=== PATIENT | female | born 1980 | race Caucasian/White ===

== ENCOUNTER 2016-06-16 20:42 | Emergency (ER) | payer BC, OTHER ==
[~2016-06-16] VITALS: Ht 154.9 cm; Wt 86.1 kg
[2016-06-16 20:50] VITALS: BP 115/76; PULSE 92; RESP 18; TEMP 98; O2SAT 97
[2016-06-16] MEDS ORDERED: CLAR10CA3 PO (21:03)
[2016-06-16] MEDS ORDERED: GLIP5TAB8 PO (21:03)
[2016-06-16] MEDS ORDERED: METF850T PO (21:03)
[2016-06-16] MEDS ORDERED: PRAV20TA2 PO (21:03)
[2016-06-16] MEDS ORDERED: METO25TA3 PO (21:03)
[2016-06-16] MEDS ORDERED: OMEP40CA2 PO (21:03)
[2016-06-16] MEDS ORDERED: BENA10TA PO (21:03)
[2016-06-16] MEDS ORDERED: MONT10TA2 PO (21:03)
[2016-06-16] MEDS ORDERED: CANA100T PO (21:03)
[2016-06-16] MEDS ORDERED: VENL37.595 PO (21:04)
[2016-06-16] MEDS ORDERED: VENL75TA2 PO (21:04)
--- NOTE | 2016-06-16 21:08 | PD ---
HPI . fall at [facility]/ now back pain and buttocks pain Chief Complaint: Fall Time Seen by Provider: 20:57 Travel History International Travel<30 days: No Contact w/Intl Traveler<30days: No Traveled to known affect area: No History of Present Illness HPI 36 old female with hypertension, hyperlipidemia, diabetes and anxiety here with complaints of a fall at [facility]. Apparently patient slipped and fell on some residual water that was on the floor. She hit her left knee and is now complaining of pain in her lower back that is radiating into her buttocks. She rates the pain 7/10 on a pain scale. She denies any injury to her head or loss of consciousness. The event was witnessed by her and some bystanders. She has no other complaints. PFSH Past Medical History High Cholesterol: Yes Diabetes: Yes Patient Takes Glucophage: Yes Hypertension: Yes Tetanus Vaccination: < 5 Years Influenza Vaccination: No ?: Not LMP: 3 weeks ago Past Surgical History Other Surgery: Yes (BL breast reduc.) Social History Alcohol Use: No Tobacco Use: No Substance Use: No Allergies-Medications (Allergen,Severity, Reaction): Coded Allergies: No Known Allergies (Unverified , 06/16/16) Reported Meds & Prescriptions Reported Meds & Active Scripts Active Robaxin (Methocarbamol) 500 Mg Tab 500 Mg PO TID Reported Venlafaxine ER 24 HR (Venlafaxine HCl) 75 Mg Tab 75 Mg PO DAILY Venlafaxine ER 24 HR (Venlafaxine HCl) 37.5 Mg Cap 37.5 Mg PO DAILY Singulair (Montelukast Sodium) 10 Mg Tab 10 Mg PO HS Claritin (Loratadine) 10 Mg Cap 10 Mg PO DAILY Omeprazole 40 Mg Cap 40 Mg PO DAILY Pravastatin 20 Mg Tab 20 Mg PO DAILY Benazepril (Benazepril HCl) 10 Mg Tab 10 Mg PO DAILY Metoprolol Tartrate 25 Mg Tab 25 Mg PO DAILY Invokana (Canagliflozin) 100 Mg Tab 100 Mg PO DAILY Take before 1st meal of day. Glipizide 5 Mg Tab 5 Mg PO TID Take 30 minutes before a meal Metformin (Metformin HCl) 850 Mg Tab 875 Mg PO TID With meals Review of Systems General / Constitutional: No: Fever Eyes: No: Visual changes HENT: No: Headaches Cardiovascular: No: Chest Pain or Discomfort Respiratory: No: Shortness of Breath Gastrointestinal: No: Abdominal Pain Genitourinary: No: Dysuria Musculoskeletal: Positive: Pain (lower back and left buttocks) Skin: No Rash Neurologic: No: Weakness Psychiatric: No: Depression Endocrine: No: Polydipsia Hematologic/Lymphatic: No: Easy Bruising Physical Exam Narrative GENERAL: AAO x 3, no acute distress, Well-nourished, well-developed patient. SKIN: Warm and dry. No visible rashes or bruising. HEAD: Normocephalic and atraumatic. EYES: No scleral icterus. No injection or drainage. ENT: No nasal drainage noted. Mucous membranes pink. Airway patent. NECK: Supple, trachea midline. No JVD. CARDIOVASCULAR: Regular rate and rhythm without murmurs, gallops, or rubs. RESPIRATORY: Breath sounds equal bilaterally. No accessory muscle use. No rhonchi or rales. GASTROINTESTINAL: Abdomen soft, non-tender, nondistended. EXTREMITIES: No cyanosis or edema. FUll ROM of Knee. No deformity. Joint is stable. no ecchymosis BACK: Nontender without obvious deformity. No CVA tenderness. Paraspinal muscle tenderness to left side of lumbar spine. There is pain in left buttocks over sciatic nerve. When pressure applied to buttocks pain is intensified radiates down. PSYCH: AAO x 3, normal affect. Data Data Last Documented VS Vital Signs Date Time Temp Pulse Resp B/P Pulse Ox O2 Delivery O2 Flow Rate FiO2 06/16/16 20:50 98.0 92 18 115/76 97 Orders Orphenadrine Inj (Norflex Inj) (06/16/16 21:15) Ketorolac Inj (Toradol Inj) (06/16/16 21:15) MDM Medical Decision Making Medical Screen Exam Complete: Yes Emergency Medical Condition: Yes Medical Record Reviewed: Yes Differential Diagnosis Muscle strain, lumbosacral strain, sciatica, less likely fracture of the spine or knee Narrative Course 36 old female with hypertension, hyperlipidemia, diabetes and anxiety here with complaints of a fall at [facility]. Apparently patient slipped and fell on some residual water that was on the floor. She hit her left knee and is now complaining of pain in her lower back that is radiating into her buttocks. She rates the pain 7/10 on a pain scale. She denies any injury to her head or loss of consciousness. The event was witnessed by her and some bystanders. She has no other complaints. Patient seen and examined. She does have some paraspinal muscle tenderness and tenderness over her left gluteus, Consistent with muscle strain and sciatica. I do not recommend any imaging. She is fully mobile left knee joint. Strength is normal. I will provide her with a shot of Norflex and Toradol and reassess her pain level. If she is improving I will discharge her home with a short course of muscle relaxers. I've advised her to follow-up with her primary care provider. She will be excused from work for the next day. Spasms somewhat improved. Patient wanting to go home to rest. Stable prior to discharge. Patient verbalized understanding of instructions, questions were answered, and thanked me for their care. I advised them if their condition worsens, please return to the nearest emergency room for further care. Diagnosis Primary Impression: Lumbosacral strain Qualified Code: S39.012A - Lumbosacral strain, initial encounter Additional Impression: Sciatica Qualified Code: M54.32 - Sciatica of left side Patient Instructions: General Instructions, Muscle Spasm (ED), Muscle Strain ( ED) Departure Forms: Tests/Procedures, Work Release Enter return to work date: Jun 18, 2016 Additional Instructions: Please return to emergency department if your symptoms return or worsen. Follow up with your primary care provider. Take medications as prescribed. Rest the affected area as much as possible. Ice this area for 15-20 minutes at a time. You can do this every hour or as much as tolerated. Use ibuprofen as needed for pain and inflammation. Med/Other Pt SpecificInfo: Prescription(s) given Scripts Methocarbamol (Robaxin)500 Mg [id number] Mg PO TID #21 TAB Ref 0 Prov:Elder Martino MD 06/16/16 Disposition: 01 DISCHARGE HOME Condition: Stable Emili Solomon Jun 16, 2016 21:08
[2016-06-16] MEDS ORDERED: KETOROLAC TROMETHAMINE 60 MG/2 ML (IM) VIAL IM ONE (21:15)
[2016-06-16] MEDS ORDERED: ORPHENADRINE INJ 60 MG/2 ML AMP IM ONE (21:15)
[2016-06-16] MEDS ORDERED: ROBA500T PO (21:22)
[2016-06-16 21:44] VITALS: RESP 18
== END 2016-06-16 21:25 | disposition home or self-care (01) ==
LOC: PHEFT 20:42
DX: S39.012A Strain of muscle, fascia and tendon of lower back, initial encounter (principal); M54.32 Sciatica, left side; I10 Essential (primary) hypertension; E11.9 Type 2 diabetes mellitus without complications; E78.00 Pure hypercholesterolemia, unspecified; W01.0XXA Fall on same level from slipping, tripping and stumbling without subsequent striking against object, initial encounter; Y92.512 Supermarket, store or market as the place of occurrence of the external cause; Y99.8 Other external cause status
CPT/HCPCS: 96372; 99283; J1885; J2360